=== PATIENT | female | born 2000 | race Caucasian/White ===

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

== ENCOUNTER 2018-03-13 19:33 | Emergency (ER) | payer OTHER ==
[2018-03-13 19:41] VITALS: RESP 18; TEMP 97.9; O2SAT 100
[2018-03-13 19:45] VITALS: BMI 21.0
[2018-03-13] MEDS ORDERED: Sodium Chloride 0.9% 1,000 ML IV STA (19:46)
[2018-03-13 20:26] LABS: ALB/GLOB RATIO 1.5 (1.1-1.8); ALT/SGPT 22 U/L (7-56); AST/SGOT 22 U/L (14-36); BLOOD UREA NITROGEN 14 mg/dL (7-21); CALCIUM 10.5 mg/dL (8.4-10.5); GFR AFRICAN-AMERICAN > 60; GFR NON-AFRICAN AMERICAN > 60
[2018-03-13 20:31] LABS: BASO # 0.01 K/mm3 (0.0-2.0); BASO % 0.3 % (0.0-3.0); EOS % 0.5 % (1.5-5.0); GRAN # 1.73 (1.4-6.5); GRAN % 45.7 % (50.0-68.0); HEMOGLOBIN 14.2 g/dL (12.0-16.0); LYMPH # 1.8 (1.2-3.4); LYMPH % 47.2 % (22.0-35.0); MEAN CELL VOLUME 79.7 fl (80.0-105.0); MEAN CORPUSCULAR HGB CONC 33.9 g/dl (31.0-37.0); MEAN PLATELET VOLUME 11.8 fl (7.0-11.0); MONO # 0.2 (0.1-0.6); MONO % 6.3 % (1.0-6.0); RBC 5.26 10^6/uL (3.5-6.1); WHITE BLOOD COUNT 3.8 10^3/ul (4.5-11.0)
[2018-03-13 20:31] LABS: URINE BILIRUBIN NEGATIVE (NEGATIVE); URINE BLOOD NEGATIVE (NEGATIVE); URINE GLUCOSE (UA) NEGATIVE (NEGATIVE); URINE LEUKOCYTE ESTERASE NEGATIVE Leu/uL (NEGATIVE); URINE PROTEIN NEGATIVE mg/dL (<30 mg/dL); URINE UROBILINOGEN 0.2 E.U./dL (<1 E.U./dL)
[2018-03-13 20:32] LABS: URINE APPEARANCE CLEAR (CLEAR); URINE COLOR YELLOW (YELLOW)
[2018-03-13 20:33] LABS: HCG,QUALITATIVE URINE NEGATIVE (NEGATIVE)
[2018-03-13 21:08] VITALS: BP 112/72; PULSE 72
--- NOTE | 2018-03-19 21:48 | ED PDOC ---
Arrival/HPI - General Chief Complaint: Dizziness/Lightheaded Time Seen by Provider: 03/13/18 19:38 Historian: Patient - Critical Care Narrative Critical Care (Text): 03/13/18 19:55 This 17 yo female presents to this ED c/o feeling generalized weakness, and nauseous x OPTICAL ADVISOR. Patient admits not drinking enough fluids at work. Patient denies other somatic complains. Denies sob, cp, abdominal pain, vomiting, diarrhea, urinary symptoms, or abnormal gait. I asked patient regarding dizziness. She stated she does not feel dizzy, but she feels generalized weakness. - History of Present Illness Time/Duration: Prior to Arrival Context: Work Past Medical History - Provider Review Nursing Documentation Reviewed: Yes - Infectious Disease Hx of Infectious Diseases: None - Tetanus Immunization Tetanus Immunization: Unknown - Pulmonary Hx Asthma: Yes - Genitourinary/Gynecological Hx Genitourinary Disorders: No - Psychiatric Hx Psychophysiologic Disorder: No Hx Substance Use: No - Surgical History Hx Appendectomy: Yes Hx Tonsillectomy: Yes - Anesthesia Hx Anesthesia: Yes Hx Anesthesia Reactions: No Hx Malignant Hyperthermia: No - Suicidal Assessment Feels Threatened In Home Enviroment: No Family/Social History - Physician Review Nursing Documentation Reviewed: Yes Family/Social History: Other (noncontributory) Smoking Status: Never Smoked Hx Alcohol Use: No Hx Substance Use: No Allergies/Home Meds Allergies/Adverse Reactions: Allergies Sulfa (Sulfonamide Antibiotics) Allergy (Verified 07/17/17 18:55) RASH Review of Systems - Review of Systems Constitutional: Normal. absent: Fatigue, Weight Change, Fevers Eyes: Normal ENT: Normal Respiratory: Normal. absent: SOB, Cough Cardiovascular: Normal. absent: Chest Pain, Palpitations Gastrointestinal: Nausea. absent: Abdominal Pain, Stool Changes, Constipation, Diarrhea, Vomiting, Appetite Changes, Hematochezia, Hematemesis, Anorexia Genitourinary Female: Normal. absent: Dysuria, Frequency, Hematuria, Urine Output Changes, Vaginal Bleeding, Vaginal Discharge Musculoskeletal: Normal Skin: Normal Neurological: Normal, Other (see hpi). absent: Headache, Dizziness, Focal Weakness, Gait Changes, Speech Changes, Facial Droop, Disequilibrium, Seizure Endocrine: Normal Hemo/Lymphatic: Normal Psychiatric: Normal Physical Exam Vital Signs Temp Pulse Resp BP Pulse Ox 03/13/18 21:07 72 18 112/72 100 03/13/18 19:41 97.9 F 82 18 122/48 L 100 Temperature: Afebrile Blood Pressure: Normal Pulse: Regular Respiratory Rate: Normal Appearance: Positive for: Well-Appearing, Non-Toxic, Comfortable Pain Distress: None Mental Status: Positive for: Alert and Oriented X 3 - Systems Exam Head: Present: Atraumatic, Normocephalic Pupils: Present: PERRL Extroacular Muscles: Present: EOMI Conjunctiva: Present: Normal Mouth: Present: Moist Mucous Membranes Neck: Present: Normal Range of Motion Respiratory/Chest: Present: Clear to Auscultation, Good Air Exchange. No: Respiratory Distress, Accessory Muscle Use Cardiovascular: Present: Regular Rate and Rhythm, Normal S1, S2. No: Murmurs Abdomen: No: Tenderness, Distention, Peritoneal Signs Back: Present: Normal Inspection Upper Extremity: Present: Normal Inspection, Normal ROM, NORMAL PULSES. No: Cyanosis, Edema Lower Extremity: Present: Normal Inspection, Normal ROM. No: Edema Neurological: Present: GCS=15, CN II-XII Intact, Speech Normal Skin: Present: Warm, Dry, Normal Color. No: Rashes Psychiatric: Present: Alert, Oriented x 3, Normal Insight, Normal Concentration Medical Decision Making ED Course and Treatment: 03/13/18 21:05 Case was discussed with Dr. Thompson. He examined patient and he agreed with plan. Re-evaluation Time: 21:05 Reassessment Condition: Re-examined, Improved - Lab Interpretations Microbiology Results: Microbiology Results 03/13/18 20:18 Urine Urine Culture - Final Staphylococcus Saprophyticus Lab Results: 03/13/18 20:09 03/13/18 20:09 Lab Results 03/13/18 20:18: Urine Color Yellow, Urine Appearance Clear, Urine pH 6.0, Ur Specific [place] 1.010, Urine Protein Negative, Urine Glucose (UA) Negative, Urine Ketones Negative, Urine Blood Negative, Urine Nitrate Negative, Urine Bilirubin Negative, Urine Urobilinogen 0.2, Ur Leukocyte Esterase Negative, Urine HCG, Qual Negative 03/13/18 20:09: Sodium 141, Potassium 4.1, Chloride 101, Carbon Dioxide 27, Anion Gap 18, BUN 14, Creatinine 0.6 L, Est GFR ( Amer) > 60, Est GFR ( Non-Af Amer) > 60, Random Glucose 88, Calcium 10.5, Total Bilirubin 0.4, AST 22 , ALT 22, Alkaline Phosphatase 68, Total Protein 8.3, Albumin 5.0 H, Globulin 3.3, Albumin/Globulin Ratio 1.5 03/13/18 20:09: WBC 3.8 L, RBC 5.26, Hgb 14.2, Hct 41.9, MCV 79.7 L, MCH 27.0, MCHC 33.9, RDW 13.0, Plt Count 231, MPV 11.8 H, Gran % 45.7 L, Lymph % (Auto) 47.2 H, [place] % (Auto) 6.3 H, Eos % (Auto) 0.5 L, Baso % (Auto) 0.3, Gran # 1.73 , Lymph # (Auto) 1.8, [place] # (Auto) 0.2, Eos # (Auto) 0.0, Baso # (Auto) 0.01 I have reviewed the lab results: Yes Interpretation: No clinic. lab abnormalty - Medication Orders Current Medication Orders: Discontinued Medications Sodium Chloride (Sodium Chloride 0.9%) 1,000 mls @ 999 mls/hr IV .Q1H1M STA Stop: 03/13/18 20:46 Last Admin: 03/13/18 20:11 Dose: 999 mls/hr eMAR Start Stop Document 03/13/18 20:11 CNR (Rec: 03/13/18 20:12 CNR [id number]) Intravenous Solution Start Date 03/13/18 Start Time 20:12 Meclizine HCl (Antivert) 50 mg PO STAT STA Stop: 03/13/18 19:47 Last Admin: 03/13/18 20:12 Dose: 50 mg Disposition/Present on Arrival - Present on Arrival Any Indicators Present on Arrival: No History of DVT/PE: No History of Uncontrolled Diabetes: No Urinary Catheter: No History of Decub. Ulcer: No History Surgical Site Infection Following: None - Disposition Have Diagnosis and Disposition been Completed?: Yes Diagnosis: Dehydration Disposition: HOME/ ROUTINE Disposition Time: 21:05 Patient Plan: Discharge Condition: IMPROVED Discharge Instructions (ExitCare): Dehydration, Adult (DC) Additional Instructions: ESTRADA FIGUEROA, thank you for letting us take care of you today. The emergency medical care you received today was directed at your acute symptoms. If you were prescribed any medication, please fill it and take as directed. It may take several days for your symptoms to resolve. Return to the Emergency Department if your symptoms worsen, do not improve, or if you have any other problems. Please contact your doctor or call one of the physicians/clinics you have been referred to that are listed on the Patient Visit Information form that is included in your discharge packet. Bring any paperwork you were given at discharge with you along with any medications you are taking to your follow up visit. Our treatment cannot replace ongoing medical care by a primary care provider outside of the emergency department. Thank you for allowing the [facility] team to be part of your care today. Stay hydrated throughout the day. Follow up with your primary care doctor in 2-3 days for re-evaluation and further management. Referrals: [facility], [Non-Staff] - Follow up with primary Forms: [employer] ([place])
== END 2018-03-13 21:07 | disposition home or self-care (01) ==
LOC: ED 19:33
DX: E86.0 Dehydration (principal)
CPT/HCPCS: 80053; 81003; 84703; 85025; 87086; 87181; 99285; J7030